=== PATIENT | female | born 1965 | race Caucasian/White ===

== ENCOUNTER 2016-07-13 06:08 | Day surgery (SDC) | payer OTHER, MEDICAID ==
[~2016-07-13 06:08] MED LIST: IV START KIT ONE; LACTATED RINGERS 1,000 ML ONE
[2016-07-13] MEDS ORDERED: LACTATED RINGERS 1,000 ML IV SCH ×2 (06:19→08:45)
[2016-07-13] MEDS ORDERED: CEFAZOLIN SODIUM 2 GRAM DUPLEX 2 G in Premix (D5W) 50 ml 1 EACH IV PRN (06:19)
[2016-07-13] MEDS ORDERED: LIDOCAINE 1% 2 ML VIAL ID PRN (06:19)
[2016-07-13] MEDS ORDERED: CEFAZOLIN SODIUM 2 GRAM PREMIX 100 ML IV ONE (06:26)
[2016-07-13] MEDS ORDERED: VASOPRESSIN 20 UNITS/ML VIAL ONE (06:47)
[2016-07-13] MEDS ORDERED: SULFANILAMIDE 15% CREAM 20 APPLIC/120 G TUBE ONE (06:47)
[2016-07-13] MEDS ORDERED: ESTROGENS,CONJUGATED CREAM 30 G/TUBE VG ONE (06:47)
[2016-07-13] MEDS ORDERED: SODIUM CHLORIDE 0.9% 50 ML ONE (06:47)
[2016-07-13] MEDS ORDERED: FENTANYL 100 MCG/2 ML VIAL ONE (06:49)
[2016-07-13] MEDS ORDERED: MIDAZOLAM HCL 1 MG/ML 2ML VIAL ONE (06:49)
[2016-07-13] MEDS ORDERED: MORPHINE SULFATE (DURAMORPH) 1 MG/ML 10ML AMP ONE (07:13)
[2016-07-13] MEDS ORDERED: SPINAL PROCEDURAL TRAY 1 EACH ONE (07:15)
[2016-07-13] MEDS ORDERED: ALBUTEROL/IPRATROPIUM 2.5/0.5 MG 3 ML/EACH DOSE ONE (08:32)
[2016-07-13] MEDS ORDERED: HYDRALAZINE HCL 20 MG/1 ML VIAL IV PRN (08:38)
[2016-07-13] MEDS ORDERED: MEPERIDINE 25 MG/ML SYRINGE IV PRN (08:38)
[2016-07-13] MEDS ORDERED: ONDANSETRON 4 MG/2ML 2 ML VIAL IV PRN (08:38)
[2016-07-13] MEDS ORDERED: KETOROLAC TROMETHAMINE 30 MG/ML 1 ML VIAL IV ONE (08:38)
[2016-07-13] MEDS ORDERED: ATROPINE SULFATE 0.4 MG/1 ML VIAL IV PRN (08:38)
[2016-07-13] MEDS ORDERED: PROMETHAZINE HCL 25 MG/ML VIAL IM PRN (08:38)
[2016-07-13] MEDS ORDERED: NALOXONE HCL 0.4 MG/ML VIAL IV PRN (08:38)
[2016-07-13] MEDS ORDERED: LABETALOL HCL 5 MG/ML 20ML VIAL IV PRN (08:38)
[2016-07-13] MEDS ORDERED: FENTANYL 100 MCG/2 ML VIAL IV PRN (08:38)
[2016-07-13] MEDS ORDERED: HYDROMORPHONE HCL 1 MG/ML SYRINGE IV PRN (08:38)
[2016-07-13] MEDS ORDERED: MORPHINE SULFATE 2 MG/ML SYRINGE IV PRN (08:40)
[2016-07-13] MEDS ORDERED: ALBUTEROL/IPRATROPIUM 2.5/0.5 MG 3 ML/EACH DOSE NEB ONE (08:43)
[2016-07-13] MEDS ORDERED: PROPOFOL 60 ML IV ONE (08:44)
[2016-07-13] MEDS ORDERED: CLONAZEPAM 0.5 MG TABLET PO PRN (09:09)
[2016-07-13] MEDS ORDERED: MAG HYDROX/AL HYDROX/SIMETH 30 ML UDCUP PO PRN (09:09)
[2016-07-13] MEDS ORDERED: BLISTEX LIPSTICK 1 EACH TP PRN (09:09)
[2016-07-13] MEDS ORDERED: DOCUSATE SODIUM 100 MG CAPSULE PO PRN (09:09)
[2016-07-13] MEDS ORDERED: MAGNESIUM HYDROXIDE/AL HYDROX 30 ML UDCUP PO PRN (09:09)
[2016-07-13] MEDS ORDERED: MECLIZINE HCL 25 MG TABLET PO PRN (09:09)
[2016-07-13] MEDS ORDERED: ALBUTEROL SULFATE MDI 60 PUFFS/INHALER IH PRN (09:09)
[2016-07-13] MEDS ORDERED: MENTHOL/CETYLPYRD 1 EACH LOZENGE PO PRN (09:09)
[2016-07-13] MEDS ORDERED: TRAZODONE HCL 50 MG TABLET PO PRN (09:09)
[2016-07-13 09:38] VITALS: BMI 52.1
[2016-07-13] MEDS ORDERED: PUMP TUBING ONE (09:38)
[2016-07-13] MEDS: D5 1/4NS with 20 mEq KCL 1,000 ML IV SCH ×2 (09:42→17:28)
[2016-07-13] MEDS: DIPHENHYDRAMINE HCL 50 MG/1 ML VIAL IV PRN ×2 (10:28→17:37)
[2016-07-13] MEDS: KETOROLAC TROMETHAMINE 30 MG/ML 1 ML VIAL IV SCH ×3 (10:29→21:12)
[2016-07-13] MEDS: SUCRALFATE 1 G TABLET PO SCH ×2 (10:32→21:13)
--- NOTE | 2016-07-13 10:45 | OP ---
Paula Ann DATE OF PROCEDURE: 07/13/2016 SURGEON: Renard Self M.D. PREOPERATIVE DIAGNOSIS: Urinary stress incontinence. POSTOPERATIVE DIAGNOSIS: Urinary stress incontinence. OPERATION: Transobturator sling. ANESTHESIA: Spinal. FINDINGS: There was a urethrocele. TECHNICAL PROCEDURE: After induction of satisfactory spinal anesthesia the patient was placed in the supine lithotomy position and prepped and draped in the usual fashion. A 5 cm strip of mucosa underlying the urethra was grasped between two Allis forceps. The vaginal mucosa in this area was infiltrated with a Pitressin solution and this infiltration was carried out up to the obturator foramen bilaterally. A longitudinal incision was made underlying the urethra and the mucosa was dissected free from the urethra and this dissection was carried out sharply and bluntly again up to the obturator foramen. This dissection was carried out bilaterally. The bladder was advanced cephalad using blunt dissection. A stab wound was made bilaterally just inferior to the insertion of the abductor longus muscle using an 11 knife blade. Using the Obtryx trocar the mesh was placed in the usual fashion. At this point, cystoscopy was performed. There was no evidence of mesh incursion into the bladder. The Simmons catheter was replaced. The mesh was tensioned and the excess mesh excised. The vaginal mucosa was then closed with interrupted simple stitches of 3-0 Vicryl. The inguinal incisions were closed with skin adhesive. The vaginal packing was placed and the procedure terminated. The patient tolerated the procedure well and left the operating room awake and in good condition. There were no complications. Instrument, needle, and sponge counts were correct. The estimated blood loss was 50 mL. There was no blood replacement. There were no specimens removed. JOB: [id number]
[2016-07-13] MEDS ORDERED: NALBUPHINE HCL 10 MG/ML AMP IV ONE (11:23)
[2016-07-13] MEDS: LEVOTHYROXINE SODIUM 200 MCG TABLET PO SCH (11:37)
[2016-07-13] MEDS: DULOXETINE HCL 60 MG CAP PO SCH (11:37)
[2016-07-13] MEDS ORDERED: NALOXONE HCL 0.4 MG/ML VIAL ONE (12:55)
[2016-07-13] MEDS ORDERED: SODIUM CHLORIDE 0.9% FLUSH 10 ML ONE (12:55)
[2016-07-13] MEDS: NALOXONE HCL 0.4 MG/ML VIAL IV PRN ×2 (13:09→13:58)
[2016-07-13] MEDS: HYDROXYZINE PAMOATE 25 MG CAPSULE PO PRN ×2 (15:06→21:13)
[2016-07-14] MEDS: D5 1/4NS with 20 mEq KCL 1,000 ML IV SCH ×2 (01:49→10:02)
[2016-07-14] MEDS: DIPHENHYDRAMINE HCL 50 MG/1 ML VIAL IV PRN (01:52)
[2016-07-14] MEDS: KETOROLAC TROMETHAMINE 30 MG/ML 1 ML VIAL IV SCH ×2 (04:59→12:04)
[2016-07-14 07:07] LABS: HEMATOCRIT 40.3 % (37.0-47.0)
[2016-07-14] MEDS: LEVOTHYROXINE SODIUM 200 MCG TABLET PO SCH (08:21)
[2016-07-14] MEDS: DULOXETINE HCL 60 MG CAP PO SCH (08:30)
[2016-07-14] MEDS ORDERED: HYDROMORPHONE HCL 1 MG/ML SYRINGE IV PRN (08:30)
[2016-07-14] MEDS: OXYCODONE HCL 5 MG TABLET PO PRN ×2 (08:30→12:49)
[2016-07-14] MEDS: SUCRALFATE 1 G TABLET PO SCH (08:30)
--- NOTE | 2016-07-14 09:14 | PDOC5 ---
Hospital Course: ADMIT DATE: 07/13/2016 DISCHARGE DATE: 07/14/2016 ADMISSION DIAGNOSES: Stress urinary incontinence PROCEDURES: Transobturator sling HISTORY OF PRESENT ILLNESS: 50 year old presenting with a history of stress urinary incontinence. Evaluation had documented true stress incontnence. HOSPITAL COURSE: The patient on the day of admission was taken to the operating room where she underwent a tranobturator sling. Her postoperative course was uncomplicated. By day of discharge the patient is ambulating, eating, voiding, and passing flatus without difficulty. Pain is controlled. - Objective General: Afebrile, No Acute Distress Abdomen: Soft, Non-Distended Neurological: Grossly Intact, Alert, Oriented x 4, Normal Speech Psych/Mental Status: Normal Affect, Normal Mood - Discharge Plan Condition: Good Disposition: Home Additional Instructions: Maintain pelvic rest. Report if you have heavy bleeding, worsening pain, or a temperature over 100. Prescriptions: Oxycodone HCl [ROXICODONE 5 MG IR TABLET (SHF)] 5 mg PO Q4H PRN #30 tab PRN Reason: Pain Follow-Up: Renard Self MD [Staff Physician] - In 2 weeks
[2016-07-14 11:39] VITALS: BP 120/74
== END 2016-07-14 12:53 | disposition home or self-care (01) ==
LOC: SDC 06:08 → MS 09:09 → SDC 07-14 12:53
PROVIDERS: ATTEND Obstetrics & Gynecology
PROC: 0TSD0ZZ Reposition Urethra, Open Approach (ICD-10-PCS; principal; 2016-07-14)
DX: N39.3 Stress incontinence (female) (male) (principal); N81.0 Urethrocele; E03.9 Hypothyroidism, unspecified; Z87.891 Personal history of nicotine dependence
CPT/HCPCS: 57288; 85014; 85018; 36415; A9270 ×10; J1200 ×3; J3010; J2274; J2300; J1885 ×4; J2250; J7120; J7030; J0690